=== PATIENT | female | born 1985 | race African-American/Black ===

== ENCOUNTER 2016-08-23 12:00 | Emergency (ER) | payer OTHER ==
[~2016-08-23] VITALS: Ht 154.9 cm; Wt 98.0 kg
[~2016-08-23 12:00] MED LIST: IBUP800T23 PO; METH500T3 PO
[2016-08-23 12:03] VITALS: BP 135/70; PULSE 72; RESP 18; TEMP 98.6; O2SAT 98
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
[2016-08-23] MEDS ORDERED: TRAM50TA PO (13:17)
[2016-08-23] MEDS ORDERED: IBUP800T23 PO (13:17)
[2016-08-23] MEDS ORDERED: CYCL1TAB29 PO (13:17)
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
== END 2016-08-23 13:54 | disposition home or self-care (01) ==
LOC: NEPD 12:00
DX: S16.1XXA Strain of muscle, fascia and tendon at neck level, initial encounter (principal); M25.512 Pain in left shoulder; F17.200 Nicotine dependence, unspecified, uncomplicated; V89.2XXA Person injured in unspecified motor-vehicle accident, traffic, initial encounter
CPT/HCPCS: 99284

== ENCOUNTER 2017-04-07 05:05 | Emergency (ER) | payer OTHER ==
[~2017-04-07] VITALS: Ht 154.9 cm; Wt 97.5 kg
[~2017-04-07 05:05] MED LIST changes: +CYCL10TA PO; +IBUP1TAB7 PO; +TRAM50TA PO
[2017-04-07 05:07] VITALS: BP 107/66; PULSE 78; RESP 20; TEMP 98.6; O2SAT 98
== END 2017-04-07 05:40 | disposition left against medical advice (07) ==
LOC: NEPD 05:05
DX: J00 Acute nasopharyngitis [common cold] (principal)
CPT/HCPCS: 99281

== ENCOUNTER 2017-07-15 14:59 | Emergency (ER) | payer OTHER ==
[~2017-07-15] VITALS: Ht 160 cm; Wt 92.0 kg
[2017-07-15 15:25] VITALS: BP 137/107; PULSE 97; RESP 17; TEMP 98.4; O2SAT 98
== END 2017-07-15 17:05 | disposition left against medical advice (07) ==
LOC: NED 14:59
DX: Z53.21 Procedure and treatment not carried out due to patient leaving prior to being seen by health care provider (principal)
CPT/HCPCS: 99281

== ENCOUNTER 2017-07-25 18:48 | Emergency (ER) | END 2017-07-25 22:40 | disposition home or self-care (01) | DX: N93.8 Other specified abnormal uterine and vaginal bleeding (principal); F17.200 Nicotine dependence, unspecified, uncomplicated | CPT/HCPCS: 80048; 81001; 84702; 85025; 86850; 86900; 86901; 87210; 87491; 87591; 99283; J7030 ==